=== PATIENT | male | born 1955 | race Caucasian/White ===

== ENCOUNTER 2023-10-13 08:10 | Emergency (ER) | payer MEDICARE ==
[2023-10-13] MEDS ORDERED: DUONEB 0.5-3 MG/3 ml Neb IH ONE (08:16)
[2023-10-13 08:17] VITALS: TEMP 97.5
[2023-10-13] MEDS ORDERED: PULMICORT 0.5 MG/2 ML RESPULES IH ONE (08:19)
[2023-10-13] MEDS: DUONEB 0.5-3 MG/3 ml Neb IH ONE (08:27)
[2023-10-13] MEDS: PULMICORT 0.5 MG/2 ML RESPULES IH STA (08:28)
[2023-10-13 08:29] VITALS: O2SAT 95
[2023-10-13] MEDS ORDERED: solu-MEDROL ONE (08:31)
[2023-10-13] MEDS ORDERED: Sterile H2O 10 ml IJ ONE (08:31)
[2023-10-13] MEDS ORDERED: Sodium Chloride 0.9% 1000 ML 1,000 ML ONE (08:31)
[2023-10-13] MEDS: solu-MEDROL 125 MG, Sterile H2O 10 ml 10 ML IV ONE (08:37)
[2023-10-13] MEDS: Sodium Chloride 0.9% 1000 ML 1,000 ML IV STA (08:38)
--- NOTE | 2023-10-13 08:38 | ERPHSYRPT ---
- History of Present Illness Time Seen by Provider: 10/13/23 08:35 Source: patient Exam Limitations: no limitations Patient Subjective Stated Complaint: pt here for sob since last night, no cough or fever. Triage Nursing Assessment: pt alert, walked in, mild resp distress, able to speak in full sentences, wheezes throughout, skin w/d/p. no edema noted Physician History: Patient is 68-year-old male with significant past medical history of hypertension and hyperlipidemia started feeling short of breath last night. He thought he will feel better but today morning he could not breathe at all so he came to the emergency room. He walked into the emergency room. Initially he was very short of breath and in the morning he used prima mist which did not help him so he decided come to the emergency room. Patient stated that he never have this type of symptoms before. Patient denies any fever chills cough chest pain headache dizziness nausea or vomiting. Patient just recently saw his primary care physician approximately 2 weeks ago. Timing/Duration: yesterday Activities at Onset: none Severity of Dyspnea-Max: moderate Severity of Dyspnea-Current: severe Possible Cause: no prior episodes Modifying Factors: Improves With: nothing Associated Symptoms: denies symptoms Allergies/Adverse Reactions: No Known Drug Allergies Allergy (Verified 10/13/23 08:17) Home Medications: Olmesartan/Hydrochlorothiazide [Benicar Hct 20-12.5 mg Tablet] 1 ea PO DAILY 11/05/13 [History] Atorvastatin Calcium 10 mg PO DAILY 10/13/23 [History] Potassium Chloride Tab* [Klor Con] 20 meq PO DAILY 10/13/23 [History] Hx Influenza Vaccination/Date Given: No Hx Pneumococcal Vaccination/Date Given: No Immunizations Up to Date: Yes Travel Risk - International Travel Have you traveled outside of the country in past 3 weeks: No - Emerging Infectious Disease Are you exhibiting symptoms associated with any current EIDs: Yes Symptoms: Shortness of Breath - Review of Systems Constitutional: No Fever, No Chills Eyes: No Symptoms Ears, Nose, & Throat: No Symptoms Respiratory: Dyspnea, Dyspnea on Exertion (CISNEROS), No Cough, No Stridor, No Wheezing Cardiac: No Chest Pain, No Edema, No Syncope Abdominal/Gastrointestinal: No Abdominal Pain, No Nausea, No Vomiting, No Diarrhea Genitourinary Symptoms: No Dysuria Musculoskeletal: No Back Pain, No Neck Pain Skin: No Rash Neurological: No Dizziness, No Focal Weakness, No Sensory Changes Psychological: No Symptoms Endocrine: No Symptoms All Other Systems: Reviewed and Negative - Past Medical History Pertinent Past Medical History: Yes Neurological History: No Pertinent History ENT History: No Pertinent History Cardiac History: High Cholesterol Respiratory History: No Pertinent History Endocrine Medical History: No Pertinent History Musculoskeletal History: Arthritis, Other GI Medical History: GERD History: No Pertinent History Psycho-Social History: No Pertinent History Male Reproductive Disorders: No Pertinent History Other Medical History: right shoulder pain - Past Surgical History Past Surgical History: Yes Neuro Surgical History: No Pertinent History Cardiac: No Pertinent History Respiratory: No Pertinent History Gastrointestinal: No Pertinent History Genitourinary: No Pertinent History Musculoskeletal: Other Male Surgical History: No Pertinent History Other Surgical History: Left wrist - Social History Smoking Status: Heavy tobacco smoker How long have you smoked: 40 Exposure to second hand smoke: Yes Drug Use: none - Nursing Vital Signs Nursing Vital Signs: Initial Vital Signs Temperature 97.5 F 10/13/23 08:15 Pulse Rate 87 10/13/23 08:15 Respiratory Rate 28 H 10/13/23 08:15 Blood Pressure 166/64 10/13/23 08:15 O2 Sat by Pulse Oximetry 97 10/13/23 08:15 Pain Scale Pain Intensity 0 - Physical Exam General Appearance: no apparent distress, alert Eye Exam: PERRL/EOMI Neck Exam: normal inspection, supple Respiratory Exam: diminished breath sounds, wheezing, No crackles/rales, No rhonchi Cardiovascular/Chest Exam: normal heart sounds, regular rate/rhythm Abdominal/Gastrointestinal Exam: soft, No tenderness, No distention, No mass Extremity Exam: non-tender, normal range of motion, normal inspection, no calf tenderness, no pedal edema Neurologic Exam: alert, oriented x 3, cooperative, cash posting clerk II-XII nml as tested, sensation nml, No motor deficits Skin Exam: normal color, warm, No dry SpO2 Interpretation: normal SpO2: 95 O2 Delivery: Room Air - Course Nursing assessment & vital signs reviewed: Yes EKG Interpreted by Me: Sinus Rhythm Rhythm Strip: Normal Sinus Rhythm - Radiology Exams Chest X-ray Interpretation: Interpreted by me (Atelectasis, fibrotic changes), Reviewed by me Ordered Tests: Active Orders 24 hr Category Date Time Status EKG-ER Only STAT Care 10/13/23 08:22 Active Oxygen-ED Only Nasal Cannula 2 lpm Care 10/13/23 08:22 Hold CHEST 2 VIEWS (PA AND LAT) Stat Exams 10/13/23 08:53 Taken CBC W DIFF Stat Lab 10/13/23 08:20 Completed CMP Stat Lab 10/13/23 08:20 Completed D-DIMER QUANTITATIVE Stat Lab 10/13/23 08:20 Completed MAGNESIUM Stat Lab 10/13/23 08:20 Completed NT PRO BNPII Stat Lab 10/13/23 08:20 Completed TROPONIN Stat Lab 10/13/23 08:20 Completed Respiratory Therapy Assessment DAILY RT 10/13/23 08:29 Completed Medication Summary Discontinued Medications Generic Name Dose Route Start Last Admin Trade Name Freq PRN Reason Stop Dose Admin Albuterol/Ipratropium Confirm 10/13/23 08:16 Ipratropium/Albuterol Sulfate 3 Ml Ampul.Neb Administered 10/13/23 08:17 Dose 3 ml IH .STK-MED ONE Albuterol/Ipratropium 3 ml 10/13/23 08:22 10/13/23 08:27 Ipratropium/Albuterol Sulfate 3 Ml Ampul.Neb IH 10/13/23 08:23 3 ml STAT ONE Administration Budesonide Confirm 10/13/23 08:19 Budesonide 0.5 Mg/2 Ml Ampul.Neb. Administered 10/13/23 08:20 Dose 0.5 mg IH .STK-MED ONE Budesonide 0.5 mg 10/13/23 08:22 10/13/23 08:28 Budesonide 0.5 Mg/2 Ml Ampul.Neb. IH 10/13/23 08:23 0.5 mg 1XONLY STA Administration Methylprednisolone Sodium 0 mg 10/13/23 08:22 10/13/23 08:37 Succinate 125 mg/ Sterile IV 10/13/23 08:23 125 mg Water 10 ml STAT ONE Administration Sodium Chloride 1,000 mls @ 999 mls/hr 10/13/23 08:22 10/13/23 08:38 Sodium Chloride 0.9% 1000 Ml IV 10/13/23 09:22 999 mls/hr .Q1H1M STA Administration Sodium Chloride Confirm 10/13/23 08:31 Sodium Chloride 0.9% 1000 Ml Administered 10/13/23 08:32 Dose 1,000 mls @ ud .ROUTE .STK-MED ONE Methylprednisolone Sodium Succinate Confirm 10/13/23 08:31 Methylprednis Sod Succ 125 Mg/2 Ml Vial Administered 10/13/23 08:32 Dose 125 mg .ROUTE .STK-MED ONE Sterile Water Confirm 10/13/23 08:31 Water For Injection,Sterile 10 Ml Vial Administered 10/13/23 08:32 Dose 10 ml IJ .STK-MED ONE Lab/Rad Data: Laboratory Result Diagrams 10/13/23 08:20 10/13/23 08:20 Laboratory Results 10/13/23 10/13/23 10/13/23 Range/Units 08:20 08:20 08:20 WBC (4.0-10.5) x10^3/uL RBC (4.1-5.6) x10^6/uL Hgb (12.5-18.0) g/dL Hct (42-50) % MCV (78-100) fL MCH (26-32) pg MCHC (32-36) g/dL RDW (11.5-14.0) % Plt Count (150-450) x10^3/uL MPV (7.5-11.0) fL Gran % (36.0-66.0) % Immature Gran % (Auto) (0.00-0.4) % Nucleat RBC Rel Count (0.00-0.1) % Eos # (Auto) (0-0.5) x10^3/uL Immature Gran # (Auto) (0.00-0.03) x10^3u/L Absolute Lymphs (auto) (1.0-4.6) x10^3/uL Absolute Monos (auto) (0.0-1.3) x10^3/uL Absolute Nucleated RBC (0.00-0.01) x10^3u/L Lymphocytes % (24.0-44.0) % Monocytes % (0.0-12.0) % Eosinophils % (0.00-5.0) % Basophils % (0.0-0.4) % Absolute Granulocytes (1.4-6.9) x10^3/uL Basophils # (0-0.4) x10^3/uL D-Dimer 0.28 (0.0-0.50) mg/L Sodium 142 (135-145) mmol/L Potassium 4.1 (3.5-5.1) mmol/L Chloride 102 (98-107) mmol/L Carbon Dioxide 34 H (22-30) mmol/L Anion Gap 10.1 (5-15) MEQ/L BUN 13 (9-20) mg/dL Creatinine 1.11 (0.66-1.25) mg/dL Estimated GFR 71.4 ML/MIN Glucose 140 H (74-106) mg/dL Calcium 9.3 (8.4-10.2) mg/dL Magnesium 1.8 (1.6-2.3) mg/dL Total Bilirubin 0.40 (0.2-1.3) mg/dL AST 33 (17-59) U/L ALT 17 (0-50) U/L Alkaline Phosphatase 74 (38-126) U/L Troponin I < 0.012 (0.000-0.033) ng/mL NT-Pro-B Natriuret Pep 57.5 (<300) pg/mL Serum Total Protein 7.7 (6.3-8.2) g/dL Albumin 4.4 (3.5-5.0) g/dL 10/13/23 Range/Units 08:20 WBC 8.2 (4.0-10.5) x10^3/uL RBC 4.43 (4.1-5.6) x10^6/uL Hgb 14.2 (12.5-18.0) g/dL Hct 41.5 L (42-50) % MCV 93.7 (78-100) fL MCH 32.1 H (26-32) pg MCHC 34.2 (32-36) g/dL RDW 12.9 (11.5-14.0) % Plt Count 173 D (150-450) x10^3/uL MPV 10.8 (7.5-11.0) fL Gran % 54.2 (36.0-66.0) % Immature Gran % (Auto) 0.2 (0.00-0.4) % Nucleat RBC Rel Count 0.0 (0.00-0.1) % Eos # (Auto) 0.11 (0-0.5) x10^3/uL Immature Gran # (Auto) 0.02 (0.00-0.03) x10^3u/L Absolute Lymphs (auto) 2.66 (1.0-4.6) x10^3/uL Absolute Monos (auto) 0.95 (0.0-1.3) x10^3/uL Absolute Nucleated RBC 0.00 (0.00-0.01) x10^3u/L Lymphocytes % 32.3 (24.0-44.0) % Monocytes % 11.5 (0.0-12.0) % Eosinophils % 1.3 (0.00-5.0) % Basophils % 0.5 (0.0-0.4) % Absolute Granulocytes 4.46 (1.4-6.9) x10^3/uL Basophils # 0.04 (0-0.4) x10^3/uL D-Dimer (0.0-0.50) mg/L Sodium (135-145) mmol/L Potassium (3.5-5.1) mmol/L Chloride (98-107) mmol/L Carbon Dioxide (22-30) mmol/L Anion Gap (5-15) MEQ/L BUN (9-20) mg/dL Creatinine (0.66-1.25) mg/dL Estimated GFR ML/MIN Glucose (74-106) mg/dL Calcium (8.4-10.2) mg/dL Magnesium (1.6-2.3) mg/dL Total Bilirubin (0.2-1.3) mg/dL AST (17-59) U/L ALT (0-50) U/L Alkaline Phosphatase (38-126) U/L Troponin I (0.000-0.033) ng/mL NT-Pro-B Natriuret Pep (<300) pg/mL Serum Total Protein (6.3-8.2) g/dL Albumin (3.5-5.0) g/dL - Progress Progress: improved Air Movement: good Blood Culture(s) Obtained: No Antibiotics given: No Counseled pt/family regarding: lab results, diagnosis, need for follow-up, rad results Medical Desision Making - Diagnostic Testing Diagnostic test were ordered, analyzed, and reviewed by me: Yes Radiological Interpretation: Interpreted by me, Reviewed by me - Risk of complications Low Risk: Low risk of morbidity from additional dx testing or treatment - Departure Departure Disposition: Home Clinical Impression: Atelectasis of both lungs, Perialveolar fibrosis of lung Condition: Stable Critical Care Time: No Referrals: QIAN ESPARZA [Primary Care Provider] - Follow up/PCP as directed Instructions: Shortness of Breath (Dyspnea) (DC), Atelectasis, Interstitial lung disease Additional Instructions: Discharge/Care Plan ROCKY FAJARDO was seen on 10/13/23 in the Emergency Room. The patient was counseled regarding Diagnosis,Lab results, Imaging studies, need for follow up and when to return to the Emergency Room. Prescriptions given: Discharge Note I have spoken with the patient and/or caregivers. I have explained the patient's condition, diagnosis and treatment plan based on the information available to me at this time. I have answered the patient's and/or caregiver's questions and addressed any concerns. The patient and/or caregivers have as good understanding of the patient's diagnosis, condition and treatment plan as can be expected at this point. The vital signs have been stable. The patient's condition is stable and appropriate for discharge from the emergency department. The patient will pursue further outpatient evaluation with the primary care physician or other designated or consulting physician as outlined in the discharge instructions. The patient and/or caregivers are agreeable to this plan of care and follow-up instructions have been explained in detail. The patient and/or caregivers have received these instruction. The patient/and or caregivers are aware that any significant change in condition or worsening of symptoms s hould prompt an immediate return to this or the closest emergency department or call 911. ROCKY FAJARDO was seen on 10/13/23 n the Emergency Room. At that time you were treated for an emergent condition, during your visit Laboratory, Radiology and/or other procedures may have been ordered. It is very important that you follow-up with your Primary Care Physician QIAN ESPARZA within the next 24-48 hours to review your Emergency Room visit and the final results of testing that was ordered. Some test results such as Urine Cultures, Blood Cultures, and other cultures if ordered will not be finalized for 24-48 hours. If you do not have a Primary Care Provider please call the medical records department at [phone] ext [phone] to obtain a copy of your results or you may sign into our patient portal to obtain these results by visiting us @ [email or web address] and completing the following steps: 1. Click on the Patient Portal link 2. Click the Patient Self Enrollment Link to complete the enrollment form and entering your 3. Once the enrollment form is completed you will receive an email with a temporary ID and password at the email address you provided. 4. Next choose a user name and password. Your user name must be at least 4 characters long and your password must be at least 4 characters long. 5. Choose a security question from the list and provide your answer to the question. If you already have signed into the Health Portal you may access your Health Care Information 24/12 by the following steps: 1. Login to our website @ [email or web address] 2. Enter your original user name and password. FAQS The [facility] Health Portal is an online tool that contains your Lab Results, Radiology Reports, Visit History, Discharge Instructions and Health Summary Lab and Radiology Results will not be available for 72 hours on the portal. The Portal is a secure site, passwords are encryted and URLs are re-written so they cannot be copied and pasted. You and authorized family members are the only ones who can access your Portal. Also there is a timeout feature that protects your information if you leave the Portal page open. If you have technical difficulty please use the Contact Us link on the page this will allow you to submit any questions you have regarding the Portal or you may contact the Medical Record Department at [phone] ext [phone]. Prescriptions: Fluticasone/Salmeterol 115/21 [Advair Hfa 115/21 Common canister*] 2 puff IH BIDRT 30 Days #120 inh
[2023-10-13 08:41] LABS: Absolute Neutrophil Ct (ANC) 4.46 x10^3/uL (1.4-6.9); BASOPHIL % 0.5 % (0.0-0.4); Basophil (Absolute #) 0.04 x10^3/uL (0-0.4); Eosinophil % 1.3 % (0.00-5.0); Eosinophil (Absolute #) 0.11 x10^3/uL (0-0.5); Hematocrit 41.5 % (42-50); Hemoglobin 14.2 g/dL (12.5-18.0); IMMATURE GRAN # 0.02 x10^3u/L (0.00-0.03); IMMATURE GRAN % 0.2 % (0.00-0.4); Lymphocyte (Absolute #) 2.66 x10^3/uL (1.0-4.6); Lymphocytes % 32.3 % (24.0-44.0); Mean Cell Volume 93.7 fL (78-100); Mean Corpuscular Hemoglobin 32.1 pg (26-32); Mean Corpuscular Hgb Concent. 34.2 g/dL (32-36); Mean Platelet Volume 10.8 fL (7.5-11.0); Monocyte (Absolute #) 0.95 x10^3/uL (0.0-1.3); Monocytes % 11.5 % (0.0-12.0); Neutrophil % 54.2 % (36.0-66.0); Platelet Count 173 x10^3/uL (150-450); Red Blood Count 4.43 x10^6/uL (4.1-5.6); Red Cell Distribution Width 12.9 % (11.5-14.0); White Blood Count 8.2 x10^3/uL (4.0-10.5)
[2023-10-13 09:04] LABS: ALBUMIN 4.4 g/dL (3.5-5.0); ALKALINE PHOSPHATASE 74 U/L (38-126); ANION GAP 10.1 MEQ/L (5-15); BLOOD UREA NITROGEN 13 mg/dL (9-20); CHLORIDE 102 mmol/L (98-107); Calcium 9.3 mg/dL (8.4-10.2); Carbon Dioxide 34 mmol/L (22-30); Creatinine 1 1.11 mg/dL (0.66-1.25); EST GLOMERULAR FILTRATION RATE 71.4 ML/MIN; Glucose 140 mg/dL (74-106); MAGNESIUM 1.8 mg/dL (1.6-2.3); Potassium 4.1 mmol/L (3.5-5.1); SGOT/AST 33 U/L (17-59); SGPT/ALT 17 U/L (0-50); SODIUM 142 mmol/L (135-145); TROPONIN < 0.012 ng/mL (0.000-0.033); Total Protein 7.7 g/dL (6.3-8.2)
[2023-10-13 09:34] LABS: INFLUENZA A NEGATIVE (NEGATIVE); INFLUENZA B NEGATIVE (NEGATIVE); RESPIRATORY SYNCTIAL VIRUS NEGATIVE (NEGATIVE); SARS-CoV-2 Xpert Express NEGATIVE (NEGATIVE)
[2023-10-13 10:15] VITALS: BP 153/89; PULSE 84; RESP 18
--- NOTE | 2023-10-13 17:49 | XRAY ---
Indication: Sudden short of breath. Comparison: None Portable chest hyperinflated and clear. Heart not enlarged with small hiatal hernia. Bony thorax intact with osteopenia, mild degenerative changes, and minimal dextroscoliosis. Impression: Nonacute hyperinflated chest with chronic features.
== END 2023-10-13 10:15 | disposition home or self-care (01) ==
LOC: ED 08:10
DX: J98.11 Atelectasis (principal); J84.10 Pulmonary fibrosis, unspecified; R06.02 Shortness of breath; I10 Essential (primary) hypertension; E78.5 Hyperlipidemia, unspecified; Z79.899 Other long term (current) drug therapy; Z72.0 Tobacco use
CPT/HCPCS: 0241U; 36000; 36415; 71046; 80053; 83735; 83880; 84484; 85025; 85379; 93005; 93041; 94640; 94760; 96374; 99284; J2919; A9270-GY

== ENCOUNTER 2024-03-12 21:37 | Emergency (ER) | payer MEDICARE ==
[2024-03-12 22:25] VITALS: BP 166/104; PULSE 88; RESP 16; TEMP 99.4; O2SAT 95
[2024-03-12] MEDS ORDERED: Augmentin 875-125 Tablet ONE (22:39)
[2024-03-12] MEDS ORDERED: TORAdol 30 mg Injection ONE (22:39)
[2024-03-12] MEDS: TORAdol 30 mg Injection IM ONE (22:41)
[2024-03-12] MEDS: Augmentin 875-125 Tablet PO ONE (22:44)
--- NOTE | 2024-03-12 22:55 | ERPHSYRPT ---
- History of Present Illness Time Seen by Provider: 03/12/24 21:54 Source: patient Exam Limitations: no limitations Patient Subjective Stated Complaint: c/o of dog bite to the left hand Triage Nursing Assessment: Patient brought self to ED with c/o of dog bite to the left wrist. Patient stated he came home yesterday and believes his dog thought he was someone else and bit him really quick. Dog breed is a doberman, 150lbs. Patient has contusions, swelling, and 11 small punctures surrounding the thumb. rates pain 09/10, hypertensive, skin w/n/d, patient doesn't appear to be in any distress at this time. Physician History: 69-year-old male with history of hypertension [id number], up-to-date with tetanus presented in the ER with his own dog bite which happened yesterday evening. Patient reports gradually increasing swelling and pain in the left hand first interphalangeal space and at the time. Patient reports moderate intensity sharp pain with movements of the thumb/index. No fever or chills reported. Patient reports this is his watch dog and he probably mistakenly thought it was a stranger. Allergies/Adverse Reactions: No Known Drug Allergies Allergy (Verified 03/12/24 22:25) Home Medications: Olmesartan/Hydrochlorothiazide [Benicar Hct 20-12.5 mg Tablet] 1 ea PO DAILY 11/05/13 [History] Atorvastatin Calcium 10 mg PO DAILY 10/13/23 [History] Potassium Chloride Tab* [Klor Con] 20 meq PO DAILY 10/13/23 [History] Cyanocobalamin (Vitamin B-12) [Vitamin B-12] 1 cap PO WEEKLY 03/12/24 [History] Ergocalciferol (Vitamin D2) [Vitamin D2] 1 cap PO WEEKLY 03/12/24 [History] Hx Tetanus, Diphtheria Vaccination/Date Given: (unknown) Hx Influenza Vaccination/Date Given: Yes Hx Pneumococcal Vaccination/Date Given: No Travel Risk - International Travel Have you traveled outside of the country in past 3 weeks: No - Emerging Infectious Disease Are you exhibiting symptoms associated with any current EIDs: No Symptoms: Shortness of Breath - Review of Systems Constitutional: No Symptoms Respiratory: No Symptoms Cardiac: No Symptoms Musculoskeletal: Injury Skin: Skin Lesions Neurological: No Symptoms Hematologic/Lymphatic: No Symptoms Immunological/Allergic: No Symptoms - Past Medical History Pertinent Past Medical History: Yes Neurological History: No Pertinent History ENT History: No Pertinent History Cardiac History: Hypertension Respiratory History: No Pertinent History Endocrine Medical History: No Pertinent History Musculoskeletal History: Arthritis, Other GI Medical History: GERD History: No Pertinent History Psycho-Social History: No Pertinent History Male Reproductive Disorders: No Pertinent History Other Medical History: right shoulder pain - Past Surgical History Past Surgical History: Yes Neuro Surgical History: No Pertinent History Cardiac: No Pertinent History Respiratory: No Pertinent History Gastrointestinal: No Pertinent History Genitourinary: No Pertinent History Musculoskeletal: Other Male Surgical History: No Pertinent History Other Surgical History: Left wrist, right shoulder surgery - Social History Smoking Status: Heavy tobacco smoker How long have you smoked: 40 Exposure to second hand smoke: Yes Drug Use: none - Social Determinants of Health Will the patient participate in the screening: Yes Do you worry about a steady place to live?: No Do you have any problems with any of the following?: No known problems In the past 12 months,have you had to go without utilities?: No Transportation Issues: No Has anyone in your support network made you feel unsafe?: No Have you or anyone in your house had to go without enough: No - Nursing Vital Signs Nursing Vital Signs: Initial Vital Signs Temperature 99.4 F 03/12/24 22:09 Pulse Rate 88 03/12/24 22:09 Respiratory Rate 16 03/12/24 22:09 Blood Pressure 166/104 03/12/24 22:09 O2 Sat by Pulse Oximetry 95 03/12/24 22:09 Pain Scale Pain Intensity 3 - Physical Exam General Appearance: no apparent distress Eye Exam: PERRL/EOMI Ears, Nose, Throat Exam: normal ENT inspection Neck Exam: normal inspection, full range of motion Respiratory Exam: normal breath sounds, lungs clear Cardiovascular Exam: regular rate/rhythm, normal heart sounds Extremity Exam: inflammation (Diffuse swelling and inflammation left hand dorsum proximal first interphalangeal space and thumb with puncture wound on the dorsum of the hand with slow oozing. Distal neurovascular intact.), swelling, tenderness, other Neurologic Exam: alert, oriented x 3, cooperative, normal mood/affect Skin Exam: normal color SpO2 Interpretation: normal SpO2: 95 O2 Delivery: Room Air Ordered Tests: Active Orders 24 hr Category Date Time Status HAND (MINIMUM 3 VIEWS) Stat Exams 03/12/24 23:08 Taken Medication Summary Discontinued Medications Generic Name Dose Route Start Last Admin Trade Name Hugo PRN Reason Stop Dose Admin Hydrocodone Bitart/Acetaminophen 2 tab 03/12/24 22:33 03/12/24 23:00 Hydrocodone/Apap 5/325 1 Tab Tablet PO 03/12/24 22:34 2 tab SENT HOME W/ PATIENT ONE Administration Hydrocodone Bitart/Acetaminophen Confirm 03/12/24 22:58 Hydrocodone/Apap 5/325 1 Tab Tablet Administered 03/12/24 22:59 Dose 2 tab .ROUTE .STK-MED ONE Amoxicillin/Clavulanate Potassium 875 mg 03/12/24 22:33 03/12/24 22:44 Amox Tr/Potassium Clavulanate 875 Mg Tablet PO 03/12/24 22:34 875 mg STAT ONE Administration Amoxicillin/Clavulanate Potassium Confirm 03/12/24 22:39 Amox Tr/Potassium Clavulanate 875 Mg Tablet Administered 03/12/24 22:40 Dose 875 mg .ROUTE .STK-MED ONE Bacitracin Zinc 0.9 each 03/12/24 23:07 03/12/24 23:10 Bacitracin Packet 1 Each Pckt TP 03/12/24 23:08 0.9 each STAT ONE Administration Bacitracin Zinc Confirm 03/12/24 23:09 Bacitracin Packet 1 Each Pckt Administered 03/12/24 23:10 Dose 1 each .ROUTE .STK-MED ONE Ketorolac Tromethamine 30 mg 03/12/24 22:33 03/12/24 22:41 Ketorolac Tromethamine 30 Mg/Ml Inj IM 03/12/24 22:34 30 mg STAT ONE Administration Ketorolac Tromethamine Confirm 03/12/24 22:39 Ketorolac Tromethamine 30 Mg/Ml Inj Administered 03/12/24 22:40 Dose 30 mg .ROUTE .STK-MED ONE - Progress Progress: improved, pain not gone completely, re-examined Progress Note: 03/12/24 23:53 69-year-old is evaluated in the ER for left hand dog bite yesterday. Patient is up-to-date with tetanus. 48 patient's home dog which mistakenly took him as a stranger. He is given symptomatic treatment for pain, started on Augmentin. Obtain x-rays left hand which showed fracture proximal and distal phalanx, official report is pending. Discussed and shared images with Dr. Ortiz, recommended IV and oral antibiotics, splinting and outpatient follow-up in the clinic tomorrow morning. Patient is placed in a thumb spica after thoroughly cleaning/scrubbing. Given a dose of Augmentin and Unasyn, discussed orthopedics recommendation and patient agree with outpatient follow-up. Discussed signs symptoms of worsening return to ER which he seems understanding. Discussed with Dr.: Other (Dr. Ortiz orthopedics) Counseled pt/family regarding: diagnosis, need for follow-up, rad results Medical Desision Making - Discussion of managment Care discussed with:: specialist (Dr. Ortiz orthopedic) Reviewed:: Test results Agreed on:: Treatment plan, need for follow-up Will see patient: In office - Diagnostic Testing Diagnostic test were ordered, analyzed, and reviewed by me: Yes Radiological Interpretation: Interpreted by me, Reviewed by me - Risk of complications The pt has a mod risk of morbidity or mortality based on: Need for prescription drug management, Need for minor surgical intervention in patient with know risk factors - Departure Departure Disposition: Home Clinical Impression: Dog bite, hand, Thumb fracture Condition: Stable Critical Care Time: No Referrals: QIAN ESPARZA [Primary Care Provider] - Follow up with PCP 1 day FREDDIE ORTIZ DO [ACTIVE STAFF] - Follow up/PCP as directed (Tomorrow morning at 9:30 AM) Instructions: Animal Bites (DC) Additional Instructions: Take pain medications as needed. Follow-up with orthopedics for reevaluation at 9:30 AM tomorrow morning. Return to ER for increasing pain swelling redness, discharge or if develop fever chills/difficulty movements of finger/thumb. Prescriptions: Hydrocodone/Acetaminophen [Hydrocodone-Acetamin 5-325 mg] 1 tab PO Q6HPRN PRN 3 Days #12 tablet MDD 4 PRN Reason: Pain Ibuprofen 600 mg PO Q6HPRN PRN 10 Days #20 tablet PRN Reason: Pain Amox Tr/Potass Clav. 875 mg [Augmentin 875-125 Tablet] 875 mg PO BID #14 tablet
[2024-03-12] MEDS ORDERED: NORCO 5/325 MG ONE (22:58)
[2024-03-12] MEDS: NORCO 5/325 MG PO ONE (23:00)
[2024-03-12] MEDS ORDERED: BACIGUENT PACKET ONE (23:09)
[2024-03-12] MEDS: BACIGUENT PACKET TP ONE (23:10)
[2024-03-12] MEDS ORDERED: Unasyn 3 GM Vial ONE (23:58)
[2024-03-13] MEDS ORDERED: Sodium Chloride 0.9% 100 ML ONE
[2024-03-13] MEDS: Unasyn 3 GM Vial*** 3 G in Sodium Chloride 0.9% 100 ML IV STA (00:07)
--- NOTE | 2024-03-13 09:15 | XRAY ---
Indication: Dog bite. Comparison: None 3 view left hand demonstrates osteopenia and nondisplaced comminuted vertical acute fracture base 1st proximal phalanx with soft tissue swelling. Elsewhere mild degenerative changes 1st IP joint, 1st MCP, and 1st metacarpal multangular scaphoid degenerative changes. Comment: Fracture not reported by interpreting ER clinician. Telephone report given to Dr. Polo at 0909 hrs. on March 13, 2024.
== END 2024-03-13 00:57 | disposition home or self-care (01) ==
LOC: ED 21:37
DX: S60.572A Other superficial bite of hand of left hand, initial encounter (principal); S62.522A Displaced fracture of distal phalanx of left thumb, initial encounter for closed fracture; S62.512A Displaced fracture of proximal phalanx of left thumb, initial encounter for closed fracture; W54.0XXA Bitten by dog, initial encounter; I10 Essential (primary) hypertension; Z79.891 Long term (current) use of opiate analgesic; Z79.899 Other long term (current) drug therapy; Z72.0 Tobacco use
CPT/HCPCS: 36000; 73130; 96372; 96374; 99284; J0295; J1885; A9270-GY

== ENCOUNTER 2024-03-25 07:59 | Day surgery (SDC) | payer MEDICARE ==
[~2024-03-25 07:59] MED LIST: CEFAZOLIN 2 GM/100 ML NaCl 2 GM/100 ML IVPB IV ONE; Lactated Ringers 1,000 ML IV ONE
[2024-03-25] MEDS: Lactated Ringers 1,000 ML IV SCH (08:33)
[2024-03-25] MEDS: CEFAZOLIN 2 GM/100 ML NaCl 2 GM/100 ML IVPB IV SCH (08:34)
[2024-03-25 08:47] LABS: ANION GAP 12.8 MEQ/L (5-15); Calcium 9.3 mg/dL (8.4-10.2); Creatinine 1 1.14 mg/dL (0.66-1.25); EST GLOMERULAR FILTRATION RATE 68.8 ML/MIN; Potassium 3.4 mmol/L (3.5-5.1)
[2024-03-25] MEDS ORDERED: Sensorcaine 0.25% 10 ML ONE (08:55)
[2024-03-25] MEDS ORDERED: XYLOCAINE 1% HCL 20 ML MDV ONE (08:56)
[2024-03-25] MEDS ORDERED: DIPRIVAN 200 MG/20 ML IV ONE (09:25)
[2024-03-25] MEDS ORDERED: Xylocaine-Mpf 2% 5 Ml Vial ONE (09:25)
[2024-03-25] MEDS ORDERED: Decadron 4 MG INJ ONE (09:25)
[2024-03-25] MEDS ORDERED: Zofran 4 MG/2 ML VIAL ONE (09:25)
[2024-03-25] MEDS ORDERED: SUBLIMAZE 100 MCG/2 ML ONE (09:26)
[2024-03-25] MEDS ORDERED: PHENYLEPHRINE HCL ONE (09:50)
[2024-03-25] MEDS ORDERED: Ephedrine Sulfate 50 MG/ML ONE (09:50)
--- NOTE | 2024-03-25 11:35 | XRAY ---
Indication: Left thumb ORIF surgery. Intraoperative fluoroscopy provided for 36 seconds. 5 digital spot images submitted for interpretation ultimately demonstrates 2 orthopedic screws fixating proximal phalanx fracture. Grossly stable in apposition/alignment with respect to March 19, 2024 exam.
[2024-03-25 12:21] VITALS: O2SAT 97
[2024-03-25 12:32] VITALS: BP 120/78; PULSE 84; RESP 18; TEMP 98.2
--- NOTE | 2024-03-25 14:12 | XRAY ---
36 seconds of fluoroscopy was used in surgery for a left thumb ORIF surgery.
--- NOTE | 2024-03-27 08:38 | OP ---
SURGERY DATE/TIME: 03/25/2024 [id number] PREOPERATIVE DIAGNOSIS: Comminuted articular fracture left thumb proximal phalanx. POSTOPERATIVE DIAGNOSIS: Comminuted articular fracture left thumb proximal phalanx. PROCEDURE: Open reduction with internal fixation of fracture, left thumb proximal phalanx. SURGEON: Ky Smith MD. INDICATIONS: This patient was referred to the orthopedic clinic by the emergency room where he was seen for an injury to the left thumb. He was noted to have a comminuted displaced fracture of the left thumb proximal phalanx at the metacarpophalangeal joint. He was seen in the clinic and x-rays were repeated 1 week after surgery, and due to the nature of displacement, we discussed different options including nonsurgical and surgical options. He elected for surgical treatment and scheduled the procedure for 1 week later. DESCRIPTION OF PROCEDURE AND FINDINGS: He was seen preoperatively. The operative limb and plan were reviewed. He received Ancef 2 grams IV. He was then taken to the operating room. She was placed under general anesthesia and kept in supine position for the surgical procedure. After induction of anesthesia, he was kept in supine position and we applied the tourniquet to the left upper arm over Webril padding. We then performed sterile prep and drape from fingertip to tourniquet. We initially attempted closed reduction utilizing a C-arm but found that we could not achieve satisfactory reduction, so the decision was made to proceed with ORIF. An incision was made over the dorsal ulnar side of the thumb MP joint carried out shelter down the proximal phalanx. We retracted soft tissue and identified the periosteum. The periosteal incision and elevation were carried out and retractors were placed around the volar and dorsal sides of the metacarpal. We retracted the fracture gap and removed a bony fragment from that gap that included articular cartilage. This fragment corresponded with the x-ray finding of a flipped articular fragment within the factor gap. This fragment had prevented satisfactory reduction. Once that fragment was removed, an anatomic reduction could be achieved. We were able to hold the fracture reduced with a clamp. Due to the location of the fracture we had a difficult time obtaining the appropriate trajectory to get a screw across the fracture near the articular surface, so a screw was placed more proximally in the fracture fragment. A 1.5 mm screw was applied with good fixation. To get a second screw in, we had to make an incision on the other side of the thumb and bring the screw through the intact portion of the thumb, capturing the fracture fragment in lag fashion and pulling it in. This gave us excellent stability with 2 screws. We then irrigated the wound, released the tourniquet, checked for bleeders. Several small venous bleeders were identified and cauterized followed by closure of the wound with interrupted nylon. We then injected 10 mL of 0.25% Marcaine without epinephrine into the area surrounding the incisions proximally. Bulky padded dressing with radial gutter splint were then applied.
== END 2024-03-25 12:35 | disposition home or self-care (01) ==
LOC: SDC 07:59
PROVIDERS: ATTEND Orthopaedic Surgery
DX: S62.512A Displaced fracture of proximal phalanx of left thumb, initial encounter for closed fracture (principal); I10 Essential (primary) hypertension
CPT/HCPCS: 36415; 73140; 76000; 80048; 93005; J0690; J1100; J2371; J2405; J2704; J3010